=== PATIENT | male | born 1995 | race Two or more races ===

== ENCOUNTER 2019-10-24 22:34 | Emergency (ER) | payer OTHER ==
[~2019-10-24] VITALS: Ht 180.3 cm; Wt 63.6 kg
[2019-10-24] MEDS ORDERED: HYDROcodone/acetaminophen 5mg/325mg tablet PO ONE (23:00)
[2019-10-24] MEDS ORDERED: TETanus/Pertussis (Acell)/Diphther VAC/PF (Tdap-Adult) 0.5ml syringe IMVAC ONE (23:00)
[2019-10-24] MEDS ORDERED: LIDOcaine 1% W/epiNEPHrine 1:200,000 10ml vial IJ ONE (23:00)
[2019-10-24] MEDS ORDERED: bacitracin 15gm ointment TP ONE (23:10)
[2019-10-25] MEDS ORDERED: CEPH500C5 PO (00:28)
[2019-10-25] MEDS ORDERED: HYDR-3965 PO (00:29)
[2019-10-25 01:08] VITALS: BP 106/65
== END 2019-10-25 01:12 | disposition home or self-care (01) ==
LOC: ER 22:35
DX: S81.012A Laceration without foreign body, left knee, initial encounter (principal); S81.011A Laceration without foreign body, right knee, initial encounter; S60.222A Contusion of left hand, initial encounter; S60.221A Contusion of right hand, initial encounter; S80.01XA Contusion of right knee, initial encounter; T14.8XXA Other injury of unspecified body region, initial encounter; V29.9XXA Motorcycle rider (driver) (passenger) injured in unspecified traffic accident, initial encounter; Y93.89 Activity, other specified; Y92.89 Other specified places as the place of occurrence of the external cause; Y99.8 Other external cause status
CPT/HCPCS: 12001; 73130; 73564; 90471; 90715; 99284

== ENCOUNTER 2019-11-04 22:04 | Emergency (ER) | payer OTHER ==
[~2019-11-04] VITALS: Ht 172.7 cm; Wt 32.8 kg
[2019-11-04 22:11] VITALS: BP 120/82
--- NOTE | 2019-11-04 22:27 | NUR ---
removed 1 suture from pt's right knee, no signs of infection. wound is healing apropriately.
== END 2019-11-04 22:29 | disposition home or self-care (01) ==
LOC: ER 22:05
DX: Z48.02 Encounter for removal of sutures (principal); Z79.899 Other long term (current) drug therapy
CPT/HCPCS: 99281

== ENCOUNTER 2020-10-22 23:21 | Emergency (ER) | payer OTHER ==
[~2020-10-22] VITALS: Ht 180.3 cm; Wt 66.0 kg
[2020-10-22 23:45] VITALS: BP 115/66
[2020-10-23] MEDS ORDERED: ondansetron 4mg rapidly disintigrating tab PO ONE (00:30)
[2020-10-23] MEDS ORDERED: ONDA4TAB6 PO (01:24)
== END 2020-10-23 01:32 | disposition home or self-care (01) ==
LOC: ER 23:21
DX: B34.9 Viral infection, unspecified (principal); Z20.822 Contact with and (suspected) exposure to COVID-19; R11.2 Nausea with vomiting, unspecified; R50.9 Fever, unspecified; Z79.899 Other long term (current) drug therapy
CPT/HCPCS: 87635; 99283; C9803